=== PATIENT | male | born 1960 | race Caucasian/White ===

== ENCOUNTER 2022-09-21 16:48 | Inpatient (IN) | payer OTHER ==
[2022-09-21 17:39] VITALS: BMI 31.5
[2022-09-21] MEDS ORDERED: VANCOMYCIN/WATER 2 GM/400 ML PREMIX BAG (RESTRICTED TO ID ONLY) IVPB ONE (18:13)
[2022-09-21] MEDS ORDERED: morphine CARPU-JECT 4 MG/1 ML DISP.SYRIN IVPUSH ONE (20:30)
[2022-09-21] MEDS ORDERED: morphine SULFATE 4 MG/ML VIAL ONE (20:31)
[2022-09-21 20:35] LABS: BASO % 0.2 % (0-2.0); EOS % 0.5 % (0-4.5); HEMATOCRIT 23.8 % (35.4-49); HEMOGLOBIN 7.2 GM/dL (11.7-16.9); LYMPH % 4.7 % (8-40); MCH 22.7 pg (25.7-33.7); MCHC 30.2 g/dl (32.0-35.9); MEAN PLT VOLUME 7.7 fl (7.5-11.1); MONO % 5.8 % (3.8-10.2); NEUT % 88.8 % (42.8-82.8); PLATELET COUNT 397 10^3/uL (134-434); RBC 3.18 M/mm3 (4.00-5.60); RDW 19.1 % (11.9-15.9); WHITE BLOOD COUNT 19.5 K/mm3 (4.0-10.0)
[2022-09-21 20:43] LABS: INR 1.71 (0.83-1.09); PROTHROMBIN TIME (PATIENT) 19.7 SEC (9.7-13.0)
[2022-09-21 20:45] LABS: ACTIVATED PTT 34.3 SECONDS (25.2-36.5)
[2022-09-21 20:58] LABS: ALBUMIN 1.3 g/dl (3.4-5.0); BLOOD UREA NITROGEN 67.4 mg/dL (7-18); CALCIUM 7.9 mg/dL (8.5-10.1); MAGNESIUM 1.5 mg/dL (1.8-2.4)
[2022-09-21 21:01] LABS: CREATININE 2.2 mg/dL (0.55-1.3); PHOSPHOROUS 3.2 mg/dL (2.5-4.9)
[2022-09-21 21:03] LABS: BILIRUBIN,TOTAL 0.4 mg/dL (0.2-1)
[2022-09-21] MEDS ORDERED: MEROPENEM 1 GM in DEXTROSE 5%-WATER 100 ML IVPB ONE (21:22)
[2022-09-21] MEDS ORDERED: MAGNESIUM SULF 50% (8.12 MEQ/2 ML-1 GM VIAL) IVPB ONE (21:23)
[2022-09-21] MEDS ORDERED: MAGNESIUM 1GM/D5W - 1 GM/100 ML IVPB IVPB ONE (21:29)
[2022-09-21 21:44] LABS: EPI CELLS 8 /uL (0-25.1); HYALINE CASTS 1 /uL (0-3.1); PH,URINE 5.5 (5.0-8.0); URINE APPEARANCE TURBID; URINE BACTERIA >9,000 /uL (0-1359); URINE BILIRUBIN NEGATIVE (NEGATIVE); URINE COLOR YELLOW; URINE GLUCOSE (UA) NEGATIVE (NEGATIVE); URINE KETONE NEGATIVE (NEGATIVE); URINE LEUK ESTERASE 3+ (NEGATIVE); URINE NITRITE NEGATIVE (NEGATIVE); URINE PROTEIN 2+ (NEGATIVE); URINE UROBILINOGEN 0.2 mg/dL (0.2-1.0); URINE WBC 4894 /uL (0-25.8)
[2022-09-21 22:05] LABS: URINE CRYSTALS URIC ACID /hpf; URINE RBC 311.2 /uL (0-23.9)
[2022-09-22 06:30] LABS: BASO % 0.4 % (0-2.0); EOS % 1.2 % (0-4.5); HEMATOCRIT 24.4 % (35.4-49); HEMOGLOBIN 7.5 GM/dL (11.7-16.9); LYMPH % 8.1 % (8-40); MCH 23.6 pg (25.7-33.7); MCHC 30.8 g/dl (32.0-35.9); MEAN CELL VOLUME 76.6 fl (80-96); MEAN PLT VOLUME 7.9 fl (7.5-11.1); MONO % 5.5 % (3.8-10.2); NEUT % 84.8 % (42.8-82.8); PLATELET COUNT 374 10^3/uL (134-434); RBC 3.19 M/mm3 (4.00-5.60); WHITE BLOOD COUNT 17.8 K/mm3 (4.0-10.0)
[2022-09-22 06:51] LABS: POTASSIUM 4.6 mmol/L (3.5-5.1)
[2022-09-22 06:52] LABS: BLOOD UREA NITROGEN 66.5 mg/dL (7-18); CALCIUM 7.9 mg/dL (8.5-10.1)
[2022-09-22 06:56] LABS: CREATININE 2.1 mg/dL (0.55-1.3)
[2022-09-22] MEDS ORDERED: ALBUTEROL SO4 2.5/IPRATROPIUM 0.5 INH SOL 3 ML VIAL.NEB. NEB PRN (08:10)
[2022-09-22 08:49] LABS: MAGNESIUM 1.8 mg/dL (1.8-2.4)
[2022-09-22] MEDS ORDERED: VANCOMYCIN PREMIX 1.5 GM 1,500 MG/300 ML BAG IVPB SCH (09:00)
[2022-09-22] MEDS ORDERED: METOPROLOL TARTRATE 25 MG TABLET (FP) ONE (10:23)
[2022-09-22] MEDS ORDERED: SERTRALINE HCL 50 MG TABLET (FP) ONE (10:23)
[2022-09-22] MEDS: FLUTICASONE/SALMETEROL (WIXELA) 100 MCG/50 MCG DISKUS IH SCH ×2 (10:40→22:29)
[2022-09-22] MEDS: LACTOBACILLUS ACIDOPHILUS 1 TABLET PO SCH (10:41)
[2022-09-22] MEDS: METOPROLOL TARTRATE 25 MG TABLET (FP) PO SCH ×2 (10:41→21:46)
[2022-09-22] MEDS: SERTRALINE HCL 50 MG TABLET (FP) PO SCH (10:41)
[2022-09-22] MEDS: ACETAMINOPHEN 1000 MG/100 ML BAG IVPB PRN (14:04)
[2022-09-22] MEDS: ATORVASTATIN CA 40 MG TABLET (FP) PO SCH (21:45)
[2022-09-22] MEDS: risperiDONE 0.5 MG TABLET PO SCH (21:46)
[2022-09-23] MEDS ORDERED: VANCOMYCIN PREMIX 1.5 GM 1,500 MG/300 ML BAG IVPB SCH (09:00)
[2022-09-23 10:22] LABS: BASO % 0.2 % (0-2.0); EOS % 0.9 % (0-4.5); HEMATOCRIT 24.7 % (35.4-49); HEMOGLOBIN 7.6 GM/dL (11.7-16.9); LYMPH % 7.7 % (8-40); MCHC 30.6 g/dl (32.0-35.9); MEAN CELL VOLUME 75.3 fl (80-96); MEAN PLT VOLUME 8.1 fl (7.5-11.1); MONO % 4.8 % (3.8-10.2); NEUT % 86.4 % (42.8-82.8); PLATELET COUNT 372 10^3/uL (134-434); RBC 3.28 M/mm3 (4.00-5.60); RDW 19.1 % (11.9-15.9); WHITE BLOOD COUNT 16.8 K/mm3 (4.0-10.0)
[2022-09-23] MEDS: SERTRALINE HCL 50 MG TABLET (FP) PO SCH (10:26)
[2022-09-23] MEDS: LACTOBACILLUS ACIDOPHILUS 1 TABLET PO SCH (10:26)
[2022-09-23] MEDS: METOPROLOL TARTRATE 25 MG TABLET (FP) PO SCH ×2 (10:26→23:11)
[2022-09-23] MEDS: ACETAMINOPHEN 1000 MG/100 ML BAG IVPB PRN (10:41)
[2022-09-23 11:13] LABS: POTASSIUM 4.2 mmol/L (3.5-5.1)
[2022-09-23 11:28] LABS: CALCIUM 7.9 mg/dL (8.5-10.1)
[2022-09-23 11:29] LABS: ALBUMIN 1.2 g/dl (3.4-5.0); BLOOD UREA NITROGEN 62.9 mg/dL (7-18)
[2022-09-23 11:32] LABS: CREATININE 2.1 mg/dL (0.55-1.3)
[2022-09-23 11:33] LABS: BILIRUBIN,TOTAL 0.6 mg/dL (0.2-1); TOT PROT 5.8 g/dl (6.4-8.2)
[2022-09-23] MEDS: FLUTICASONE/SALMETEROL (WIXELA) 100 MCG/50 MCG DISKUS IH SCH (11:51)
[2022-09-23] MEDS: VANCOMYCIN PREMIX 1.5 GM 1,500 MG/300 ML BAG IVPB SCH (11:51)
[2022-09-23] MEDS: COLLAGENASE CLOSTRIDIUM HIST. 30 GRAMS TUBE TP SCH (15:05)
[2022-09-23] MEDS: AMINO ACIDS/PROTEIN HYDROLYS 30 ML LIQUID.PKT PO SCH (18:04)
[2022-09-23] MEDS: traMADol HCL 50 MG TABLET PO PRN (18:51)
[2022-09-23] MEDS: ATORVASTATIN CA 40 MG TABLET (FP) PO SCH (23:11)
[2022-09-24] MEDS: risperiDONE 0.5 MG TABLET PO SCH ×2 (01:37→21:44)
[2022-09-24] MEDS: FLUTICASONE/SALMETEROL (WIXELA) 100 MCG/50 MCG DISKUS IH SCH ×3 (01:39→21:45)
[2022-09-24] MEDS: AMINO ACIDS/PROTEIN HYDROLYS 30 ML LIQUID.PKT PO SCH ×2 (09:01→17:29)
[2022-09-24] MEDS: METOPROLOL TARTRATE 25 MG TABLET (FP) PO SCH ×2 (10:48→21:44)
[2022-09-24] MEDS: SERTRALINE HCL 50 MG TABLET (FP) PO SCH (10:48)
[2022-09-24] MEDS: MULTIVITAMINS THER W-MINERALS COMBO TABLET (FP) PO SCH (10:49)
[2022-09-24] MEDS: LACTOBACILLUS ACIDOPHILUS 1 TABLET PO SCH (10:49)
[2022-09-24] MEDS: COLLAGENASE CLOSTRIDIUM HIST. 30 GRAMS TUBE TP SCH (10:49)
[2022-09-24] MEDS: VANCOMYCIN PREMIX 1.5 GM 1,500 MG/300 ML BAG IVPB SCH (14:25)
[2022-09-24] MEDS: traMADol HCL 50 MG TABLET PO PRN ×2 (15:37→21:48)
[2022-09-24] MEDS: ATORVASTATIN CA 40 MG TABLET (FP) PO SCH (21:44)
[2022-09-25] MEDS: traMADol HCL 50 MG TABLET PO PRN ×2 (06:09→11:50)
[2022-09-25 07:31] LABS: BASO % 0.4 % (0-2.0); EOS % 1.2 % (0-4.5); HEMATOCRIT 24.8 % (35.4-49); HEMOGLOBIN 7.5 GM/dL (11.7-16.9); MCH 22.9 pg (25.7-33.7); MCHC 30.2 g/dl (32.0-35.9); MEAN CELL VOLUME 75.6 fl (80-96); MEAN PLT VOLUME 8.1 fl (7.5-11.1); MONO % 6.7 % (3.8-10.2); NEUT % 83.7 % (42.8-82.8); PLATELET COUNT 353 10^3/uL (134-434); RBC 3.28 M/mm3 (4.00-5.60); WHITE BLOOD COUNT 16.9 K/mm3 (4.0-10.0)
[2022-09-25 07:53] LABS: POTASSIUM 4.1 mmol/L (3.5-5.1)
[2022-09-25 08:08] LABS: BLOOD UREA NITROGEN 62.9 mg/dL (7-18); CALCIUM 8.1 mg/dL (8.5-10.1)
[2022-09-25 08:09] LABS: ALBUMIN 1.2 g/dl (3.4-5.0)
[2022-09-25 08:12] LABS: CREATININE 2.1 mg/dL (0.55-1.3)
[2022-09-25 08:13] LABS: BILIRUBIN,TOTAL 0.7 mg/dL (0.2-1)
[2022-09-25] MEDS: AMINO ACIDS/PROTEIN HYDROLYS 30 ML LIQUID.PKT PO SCH ×2 (08:39→17:12)
[2022-09-25] MEDS: LACTOBACILLUS ACIDOPHILUS 1 TABLET PO SCH (11:50)
[2022-09-25] MEDS: MULTIVITAMINS THER W-MINERALS COMBO TABLET (FP) PO SCH (11:51)
[2022-09-25] MEDS: SERTRALINE HCL 50 MG TABLET (FP) PO SCH (11:51)
[2022-09-25] MEDS: METOPROLOL TARTRATE 25 MG TABLET (FP) PO SCH ×3 (11:51→21:46)
[2022-09-25] MEDS: FLUTICASONE/SALMETEROL (WIXELA) 100 MCG/50 MCG DISKUS IH SCH ×2 (11:56→21:47)
[2022-09-25] MEDS: COLLAGENASE CLOSTRIDIUM HIST. 30 GRAMS TUBE TP SCH (14:00)
[2022-09-25] MEDS: ATORVASTATIN CA 40 MG TABLET (FP) PO SCH (21:44)
[2022-09-25] MEDS: risperiDONE 0.5 MG TABLET PO SCH (21:45)
[2022-09-26] MEDS: AMINO ACIDS/PROTEIN HYDROLYS 30 ML LIQUID.PKT PO SCH ×2 (08:34→17:04)
[2022-09-26 08:36] LABS: BASO % 0.3 % (0-2.0); EOS % 1.4 % (0-4.5); HEMATOCRIT 24.1 % (35.4-49); HEMOGLOBIN 7.3 GM/dL (11.7-16.9); LYMPH % 8.5 % (8-40); MCH 22.8 pg (25.7-33.7); MCHC 30.4 g/dl (32.0-35.9); MEAN CELL VOLUME 75.2 fl (80-96); MEAN PLT VOLUME 7.7 fl (7.5-11.1); MONO % 6.3 % (3.8-10.2); NEUT % 83.5 % (42.8-82.8); PLATELET COUNT 313 10^3/uL (134-434); RBC 3.21 M/mm3 (4.00-5.60); RDW 18.9 % (11.9-15.9); WHITE BLOOD COUNT 15.4 K/mm3 (4.0-10.0)
[2022-09-26 09:04] LABS: POTASSIUM 4.3 mmol/L (3.5-5.1)
[2022-09-26 09:10] LABS: CALCIUM 7.8 mg/dL (8.5-10.1)
[2022-09-26 09:11] LABS: ALBUMIN 1.3 g/dl (3.4-5.0); BLOOD UREA NITROGEN 66.5 mg/dL (7-18)
[2022-09-26 09:14] LABS: CREATININE 2.2 mg/dL (0.55-1.3)
[2022-09-26 09:15] LABS: BILIRUBIN,TOTAL 0.8 mg/dL (0.2-1); TOT PROT 6.1 g/dl (6.4-8.2)
[2022-09-26] MEDS: SERTRALINE HCL 50 MG TABLET (FP) PO SCH (10:20)
[2022-09-26] MEDS: MULTIVITAMINS THER W-MINERALS COMBO TABLET (FP) PO SCH (10:20)
[2022-09-26] MEDS: LACTOBACILLUS ACIDOPHILUS 1 TABLET PO SCH (10:20)
[2022-09-26] MEDS: traMADol HCL 50 MG TABLET PO PRN (10:21)
[2022-09-26] MEDS: COLLAGENASE CLOSTRIDIUM HIST. 30 GRAMS TUBE TP SCH (10:21)
[2022-09-26] MEDS: METOPROLOL TARTRATE 25 MG TABLET (FP) PO SCH ×2 (10:21→22:40)
[2022-09-26] MEDS: FLUTICASONE/SALMETEROL (WIXELA) 100 MCG/50 MCG DISKUS IH SCH ×2 (10:22→22:00)
[2022-09-26] MEDS: ATORVASTATIN CA 40 MG TABLET (FP) PO SCH (22:39)
[2022-09-26] MEDS: risperiDONE 0.5 MG TABLET PO SCH (22:40)
[2022-09-27 09:46] LABS: POTASSIUM 4.3 mmol/L (3.5-5.1)
[2022-09-27 09:51] LABS: BLOOD UREA NITROGEN 70.3 mg/dL (7-18); CALCIUM 7.9 mg/dL (8.5-10.1)
[2022-09-27 09:54] LABS: CREATININE 2.4 mg/dL (0.55-1.3)
[2022-09-27] MEDS: SERTRALINE HCL 50 MG TABLET (FP) PO SCH (10:56)
[2022-09-27] MEDS: FLUTICASONE/SALMETEROL (WIXELA) 100 MCG/50 MCG DISKUS IH SCH ×2 (10:56→22:59)
[2022-09-27] MEDS: MULTIVITAMINS THER W-MINERALS COMBO TABLET (FP) PO SCH (10:56)
[2022-09-27] MEDS: AMINO ACIDS/PROTEIN HYDROLYS 30 ML LIQUID.PKT PO SCH ×3 (10:57→17:42)
[2022-09-27] MEDS: LACTOBACILLUS ACIDOPHILUS 1 TABLET PO SCH (10:57)
[2022-09-27] MEDS: COLLAGENASE CLOSTRIDIUM HIST. 30 GRAMS TUBE TP SCH (10:57)
[2022-09-27] MEDS: METOPROLOL TARTRATE 25 MG TABLET (FP) PO SCH ×2 (10:57→22:58)
[2022-09-27] MEDS: oxyCODONE HCL 5 MG TABLET PO PRN ×2 (15:15→22:58)
[2022-09-27] MEDS: risperiDONE 0.5 MG TABLET PO SCH (22:57)
[2022-09-27] MEDS: MELATONIN 5 MG TABLETS PO PRN (22:58)
[2022-09-27] MEDS: ATORVASTATIN CA 40 MG TABLET (FP) PO SCH (22:58)
[2022-09-28] MEDS: oxyCODONE HCL 5 MG TABLET PO PRN (05:32)
[2022-09-28] MEDS: COLLAGENASE CLOSTRIDIUM HIST. 30 GRAMS TUBE TP SCH (10:00)
[2022-09-28] MEDS: METOPROLOL TARTRATE 25 MG TABLET (FP) PO SCH ×2 (10:47→22:17)
[2022-09-28] MEDS: ASCORBIC ACID 500 MG TABLET (FP) PO SCH (10:47)
[2022-09-28] MEDS: ZINC SULFATE 220 MG CAPSULE (FP) PO SCH (10:47)
[2022-09-28] MEDS: MULTIVITAMINS THER W-MINERALS COMBO TABLET (FP) PO SCH (10:47)
[2022-09-28] MEDS: AMINO ACIDS/PROTEIN HYDROLYS 30 ML LIQUID.PKT PO SCH ×2 (10:47→17:55)
[2022-09-28] MEDS: SERTRALINE HCL 50 MG TABLET (FP) PO SCH (10:48)
[2022-09-28] MEDS: LACTOBACILLUS ACIDOPHILUS 1 TABLET PO SCH (10:48)
[2022-09-28] MEDS: FLUTICASONE/SALMETEROL (WIXELA) 100 MCG/50 MCG DISKUS IH SCH ×2 (10:49→22:17)
[2022-09-28] MEDS: ATORVASTATIN CA 40 MG TABLET (FP) PO SCH (22:17)
[2022-09-28] MEDS: risperiDONE 0.5 MG TABLET PO SCH (22:17)
[2022-09-28] MEDS: MELATONIN 5 MG TABLETS PO PRN (22:17)
[2022-09-29] MEDS: MULTIVITAMINS THER W-MINERALS COMBO TABLET (FP) PO SCH (10:59)
[2022-09-29] MEDS: AMINO ACIDS/PROTEIN HYDROLYS 30 ML LIQUID.PKT PO SCH ×2 (10:59→17:27)
[2022-09-29] MEDS: ASCORBIC ACID 500 MG TABLET (FP) PO SCH (10:59)
[2022-09-29] MEDS: METOPROLOL TARTRATE 25 MG TABLET (FP) PO SCH ×2 (11:00→23:03)
[2022-09-29] MEDS: ZINC SULFATE 220 MG CAPSULE (FP) PO SCH (11:00)
[2022-09-29] MEDS: SERTRALINE HCL 50 MG TABLET (FP) PO SCH (11:00)
[2022-09-29] MEDS: LACTOBACILLUS ACIDOPHILUS 1 TABLET PO SCH (11:00)
[2022-09-29] MEDS: traMADol HCL 50 MG TABLET PO PRN (11:00)
[2022-09-29] MEDS: FLUTICASONE/SALMETEROL (WIXELA) 100 MCG/50 MCG DISKUS IH SCH ×2 (11:06→23:03)
[2022-09-29] MEDS: COLLAGENASE CLOSTRIDIUM HIST. 30 GRAMS TUBE TP SCH (11:40)
[2022-09-29 13:22] LABS: HEMATOCRIT 26.2 % (35.4-49); HEMOGLOBIN 7.7 GM/dL (11.7-16.9); MCHC 29.4 g/dl (32.0-35.9); MEAN CELL VOLUME 78.4 fl (80-96); MEAN PLT VOLUME 8.2 fl (7.5-11.1); PLATELET COUNT 348 10^3/uL (134-434); RBC 3.34 M/mm3 (4.00-5.60); WHITE BLOOD COUNT 12.2 K/mm3 (4.0-10.0)
[2022-09-29] MEDS: risperiDONE 0.5 MG TABLET PO SCH (23:03)
[2022-09-29] MEDS: ATORVASTATIN CA 40 MG TABLET (FP) PO SCH (23:03)
[2022-09-30 08:06] LABS: BASO % 0.5 % (0-2.0); EOS % 1.1 % (0-4.5); HEMATOCRIT 21.1 % (35.4-49); LYMPH % 10.3 % (8-40); MCH 23.3 pg (25.7-33.7); MCHC 30.4 g/dl (32.0-35.9); MEAN CELL VOLUME 76.6 fl (80-96); MEAN PLT VOLUME 8.4 fl (7.5-11.1); MONO % 8.5 % (3.8-10.2); NEUT % 79.6 % (42.8-82.8); PLATELET COUNT 338 10^3/uL (134-434); RBC 2.75 M/mm3 (4.00-5.60); RDW 18.8 % (11.9-15.9)
[2022-09-30 08:08] LABS: HEMOGLOBIN 6.4 GM/dL (11.7-16.9)
[2022-09-30 08:15] LABS: POTASSIUM 4.9 mmol/L (3.5-5.1)
[2022-09-30 08:31] LABS: ALBUMIN 1.2 g/dl (3.4-5.0); BLOOD UREA NITROGEN 81.3 mg/dL (7-18)
[2022-09-30 08:33] LABS: CREATININE 2.5 mg/dL (0.55-1.3)
[2022-09-30 08:35] LABS: BILIRUBIN,TOTAL 0.4 mg/dL (0.2-1)
[2022-09-30] MEDS: AMINO ACIDS/PROTEIN HYDROLYS 30 ML LIQUID.PKT PO SCH ×2 (08:58→17:53)
[2022-09-30] MEDS: FLUTICASONE/SALMETEROL (WIXELA) 100 MCG/50 MCG DISKUS IH SCH ×2 (11:06→23:40)
[2022-09-30] MEDS: COLLAGENASE CLOSTRIDIUM HIST. 30 GRAMS TUBE TP SCH (11:06)
[2022-09-30] MEDS: SERTRALINE HCL 50 MG TABLET (FP) PO SCH (11:07)
[2022-09-30] MEDS: ZINC SULFATE 220 MG CAPSULE (FP) PO SCH (11:07)
[2022-09-30] MEDS: LACTOBACILLUS ACIDOPHILUS 1 TABLET PO SCH (11:08)
[2022-09-30] MEDS: ASCORBIC ACID 500 MG TABLET (FP) PO SCH (11:08)
[2022-09-30] MEDS: METOPROLOL TARTRATE 25 MG TABLET (FP) PO SCH ×2 (11:08→23:39)
[2022-09-30] MEDS: MULTIVITAMINS THER W-MINERALS COMBO TABLET (FP) PO SCH (11:08)
[2022-09-30] MEDS: traMADol HCL 50 MG TABLET PO PRN (17:52)
[2022-09-30] MEDS: ATORVASTATIN CA 40 MG TABLET (FP) PO SCH (23:39)
[2022-09-30] MEDS: risperiDONE 0.5 MG TABLET PO SCH (23:39)
[2022-10-01] MEDS ORDERED: SODIUM CHLORIDE 1,000 ML IV SCH (00:45)
[2022-10-01 03:45] LABS: CHLORIDE 116 mmol/L (98-107); POTASSIUM 4.7 mmol/L (3.5-5.1); SODIUM 145 mmol/L (136-145)
[2022-10-01 03:47] LABS: ANION GAP 8 MMOL/L (8-16); BLOOD UREA NITROGEN 75.5 mg/dL (7-18); CO2 20 mmol/L (21-32); GLUCOSE,RANDOM 130 mg/dL (74-106)
[2022-10-01 03:50] LABS: CREATININE 2.3 mg/dL (0.55-1.3); SGOT/AST 27 U/L (15-37); SGPT/ALT 19 U/L (13-61)
[2022-10-01 03:52] LABS: BILIRUBIN,TOTAL 0.5 mg/dL (0.2-1); TOT PROT 5.2 g/dl (6.4-8.2)
[2022-10-01 04:17] LABS: ALK PHOS 341 U/L (45-117); CALCIUM 6.4 mg/dL (8.5-10.1)
[2022-10-01 05:23] LABS: BASO % 0.8 % (0-2.0); EOS % 1.5 % (0-4.5); HEMATOCRIT 25.2 % (35.4-49); HEMOGLOBIN 7.8 GM/dL (11.7-16.9); LYMPH % 9.3 % (8-40); MCH 23.7 pg (25.7-33.7); MCHC 30.8 g/dl (32.0-35.9); MEAN CELL VOLUME 76.7 fl (80-96); MEAN PLT VOLUME 8.4 fl (7.5-11.1); MONO % 7.6 % (3.8-10.2); NEUT % 80.8 % (42.8-82.8); PLATELET COUNT 364 10^3/uL (134-434); RBC 3.28 M/mm3 (4.00-5.60); RDW 18.9 % (11.9-15.9); WHITE BLOOD COUNT 15.6 K/mm3 (4.0-10.0)
[2022-10-01 05:26] LABS: INR 1.42 (0.83-1.09); PROTHROMBIN TIME (PATIENT) 16.4 SEC (9.7-13.0)
[2022-10-01 05:28] LABS: ACTIVATED PTT 30.9 SECONDS (25.2-36.5)
[2022-10-01] MEDS ORDERED: CALCIUM GLUCONATE 10% - 1,000 MG/10 ML VIAL IVPB ONE (05:48)
[2022-10-01] MEDS: COLLAGENASE CLOSTRIDIUM HIST. 30 GRAMS TUBE TP SCH (07:45)
[2022-10-01 08:35] LABS: ARTERIAL BLD GAS O2 SATURATION 97.7 % (95-98); ARTERIAL BLOOD GAS BASE EXCESS -4.6 mmol/L (-2-2); ARTERIAL BLOOD GAS PO2 112.3 mmHg (80-100); ARTERIAL BLOOD GAS pH 7.298 (7.350-7.450)
[2022-10-01 08:39] LABS: ALLENS TEST POSITIVE
[2022-10-01] MEDS: MULTIVITAMINS THER W-MINERALS COMBO TABLET (FP) PO SCH (09:50)
[2022-10-01] MEDS: AMINO ACIDS/PROTEIN HYDROLYS 30 ML LIQUID.PKT PO SCH ×2 (09:50→17:44)
[2022-10-01] MEDS: LACTOBACILLUS ACIDOPHILUS 1 TABLET PO SCH (09:50)
[2022-10-01] MEDS: FLUTICASONE/SALMETEROL (WIXELA) 100 MCG/50 MCG DISKUS IH SCH ×2 (09:50→22:15)
[2022-10-01] MEDS: ZINC SULFATE 220 MG CAPSULE (FP) PO SCH (09:50)
[2022-10-01] MEDS: METOPROLOL TARTRATE 25 MG TABLET (FP) PO SCH ×2 (09:50→22:37)
[2022-10-01] MEDS: SERTRALINE HCL 50 MG TABLET (FP) PO SCH (09:51)
[2022-10-01] MEDS: ASCORBIC ACID 500 MG TABLET (FP) PO SCH (09:51)
[2022-10-01 12:55] LABS: HEMATOCRIT 27.9 % (35.4-49); HEMOGLOBIN 8.4 GM/dL (11.7-16.9); MCH 23.4 pg (25.7-33.7); MEAN CELL VOLUME 78.2 fl (80-96); MEAN PLT VOLUME 8.5 fl (7.5-11.1); PLATELET COUNT 390 10^3/uL (134-434); RBC 3.56 M/mm3 (4.00-5.60); RDW 19.3 % (11.9-15.9); WHITE BLOOD COUNT 20.2 K/mm3 (4.0-10.0)
[2022-10-01 13:15] LABS: ANISOCYTOSIS 2+; MACROCYTOSIS 1+
[2022-10-01 13:18] LABS: POTASSIUM 5.2 mmol/L (3.5-5.1)
[2022-10-01 13:24] LABS: CREATININE 2.8 mg/dL (0.55-1.3)
[2022-10-01 13:25] LABS: BILIRUBIN,TOTAL 0.8 mg/dL (0.2-1); TOT PROT 6.7 g/dl (6.4-8.2)
[2022-10-01 13:43] LABS: ALBUMIN 1.4 g/dl (3.4-5.0); CALCIUM 8.1 mg/dL (8.5-10.1)
[2022-10-01] MEDS: ATORVASTATIN CA 40 MG TABLET (FP) PO SCH (22:36)
[2022-10-02 07:52] LABS: HEMATOCRIT 25.2 % (35.4-49); HEMOGLOBIN 7.6 GM/dL (11.7-16.9); MCH 23.4 pg (25.7-33.7); MEAN PLT VOLUME 8.6 fl (7.5-11.1); PLATELET COUNT 390 10^3/uL (134-434); RBC 3.23 M/mm3 (4.00-5.60); RDW 19.1 % (11.9-15.9); WHITE BLOOD COUNT 24.9 K/mm3 (4.0-10.0)
[2022-10-02 08:11] LABS: POTASSIUM 5.3 mmol/L (3.5-5.1)
[2022-10-02 08:17] LABS: CALCIUM 7.8 mg/dL (8.5-10.1)
[2022-10-02 08:18] LABS: ALBUMIN 1.3 g/dl (3.4-5.0); BLOOD UREA NITROGEN 92.5 mg/dL (7-18)
[2022-10-02 08:21] LABS: CREATININE 2.8 mg/dL (0.55-1.3)
[2022-10-02 08:22] LABS: BILIRUBIN,TOTAL 0.8 mg/dL (0.2-1); TOT PROT 6.4 g/dl (6.4-8.2)
[2022-10-02 09:59] LABS: ANISOCYTOSIS 1+; MACROCYTOSIS 0; OVALOCYTE 1+
[2022-10-02] MEDS: PIPERACILLIN/TAZOB 2.25 GM 2.25 GM in DEXTROSE 5%-WATER - 50 ML IVPB SCH ×3 (10:20→22:04)
[2022-10-02] MEDS: LACTOBACILLUS ACIDOPHILUS 1 TABLET PO SCH (10:21)
[2022-10-02] MEDS: SERTRALINE HCL 50 MG TABLET (FP) PO SCH (10:21)
[2022-10-02] MEDS: ZINC SULFATE 220 MG CAPSULE (FP) PO SCH (10:21)
[2022-10-02] MEDS: AMINO ACIDS/PROTEIN HYDROLYS 30 ML LIQUID.PKT PO SCH ×2 (10:21→17:52)
[2022-10-02] MEDS: MULTIVITAMINS THER W-MINERALS COMBO TABLET (FP) PO SCH (10:22)
[2022-10-02] MEDS: ASCORBIC ACID 500 MG TABLET (FP) PO SCH (10:22)
[2022-10-02] MEDS: METOPROLOL TARTRATE 25 MG TABLET (FP) PO SCH ×2 (10:22→22:04)
[2022-10-02] MEDS: COLLAGENASE CLOSTRIDIUM HIST. 30 GRAMS TUBE TP SCH (10:24)
[2022-10-02] MEDS: FLUTICASONE/SALMETEROL (WIXELA) 100 MCG/50 MCG DISKUS IH SCH ×2 (10:24→22:05)
[2022-10-02] MEDS: HEPARIN NA (PORCINE) 5,000 UNITS/ML 1ML VIAL SQ SCH ×2 (14:17→22:04)
[2022-10-02] MEDS: ALBUTEROL SO4 0.083% IH SOL 2.5 MG/3 ML VIAL.NEB. NEB SCH ×2 (16:25→20:05)
[2022-10-02] MEDS: ACETYLCYSTEINE 20% 200MG/ML 4 ML VIAL *FOR ORAL / INH USE ONLY NEB SCH ×2 (16:25→20:05)
[2022-10-02] MEDS ORDERED: MELATONIN 5 MG TABLETS PO PRN (19:34)
[2022-10-02] MEDS: ATORVASTATIN CA 40 MG TABLET (FP) PO SCH (22:04)
[2022-10-03] MEDS: PIPERACILLIN/TAZOB 2.25 GM 2.25 GM in DEXTROSE 5%-WATER - 50 ML IVPB SCH ×4 (02:05→20:56)
[2022-10-03] MEDS: ACETYLCYSTEINE 20% 200MG/ML 4 ML VIAL *FOR ORAL / INH USE ONLY NEB SCH ×4 (07:51→20:45)
[2022-10-03] MEDS: ALBUTEROL SO4 0.083% IH SOL 2.5 MG/3 ML VIAL.NEB. NEB SCH ×4 (07:52→20:45)
[2022-10-03 09:31] LABS: HEMATOCRIT 24.9 % (35.4-49); HEMOGLOBIN 7.4 GM/dL (11.7-16.9); MCH 23.6 pg (25.7-33.7); MCHC 29.9 g/dl (32.0-35.9); MEAN CELL VOLUME 78.9 fl (80-96); MEAN PLT VOLUME 8.8 fl (7.5-11.1); PLATELET COUNT 401 10^3/uL (134-434); RBC 3.15 M/mm3 (4.00-5.60); RDW 19.7 % (11.9-15.9)
[2022-10-03 09:44] LABS: WHITE BLOOD COUNT 32.7 K/mm3 (4.0-10.0)
[2022-10-03] MEDS: AMINO ACIDS/PROTEIN HYDROLYS 30 ML LIQUID.PKT PO SCH ×2 (09:58→17:18)
[2022-10-03] MEDS: LACTOBACILLUS ACIDOPHILUS 1 TABLET PO SCH (09:59)
[2022-10-03] MEDS: SERTRALINE HCL 50 MG TABLET (FP) PO SCH (09:59)
[2022-10-03] MEDS: MULTIVITAMINS THER W-MINERALS COMBO TABLET (FP) PO SCH (09:59)
[2022-10-03] MEDS: METOPROLOL TARTRATE 25 MG TABLET (FP) PO SCH ×2 (09:59→21:59)
[2022-10-03] MEDS: ASCORBIC ACID 500 MG TABLET (FP) PO SCH (09:59)
[2022-10-03] MEDS: HEPARIN NA (PORCINE) 5,000 UNITS/ML 1ML VIAL SQ SCH ×2 (10:00→21:58)
[2022-10-03] MEDS: COLLAGENASE CLOSTRIDIUM HIST. 30 GRAMS TUBE TP SCH (10:01)
[2022-10-03] MEDS: FLUTICASONE/SALMETEROL (WIXELA) 100 MCG/50 MCG DISKUS IH SCH ×2 (10:01→21:58)
[2022-10-03 10:02] LABS: ALBUMIN 1.2 g/dl (3.4-5.0); CALCIUM 7.8 mg/dL (8.5-10.1)
[2022-10-03 10:03] LABS: BLOOD UREA NITROGEN 99.9 mg/dL (7-18)
[2022-10-03 10:04] LABS: CREATININE 3.1 mg/dL (0.55-1.3)
[2022-10-03] MEDS: ZINC SULFATE 220 MG CAPSULE (FP) PO SCH (10:04)
[2022-10-03 10:06] LABS: BILIRUBIN,TOTAL 1.2 mg/dL (0.2-1); TOT PROT 6.5 g/dl (6.4-8.2)
[2022-10-03 10:22] LABS: ANISOCYTOSIS 1+
[2022-10-03] MEDS ORDERED: VANCOMYCIN/WATER FOR INJ (PEG) 1,000 MG/200 ML BAG IVPB ONE (10:33)
[2022-10-03] MEDS ORDERED: PIPERACILLIN/TAZOBACTAM 2.25 GM VIAL IVPB ONE (20:52)
[2022-10-03] MEDS: ATORVASTATIN CA 40 MG TABLET (FP) PO SCH (21:58)
[2022-10-04] MEDS: PIPERACILLIN/TAZOB 2.25 GM 2.25 GM in DEXTROSE 5%-WATER - 50 ML IVPB SCH ×4 (02:03→20:54)
[2022-10-04] MEDS: ALBUTEROL SO4 0.083% IH SOL 2.5 MG/3 ML VIAL.NEB. NEB SCH ×4 (07:35→20:47)
[2022-10-04] MEDS: ACETYLCYSTEINE 20% 200MG/ML 4 ML VIAL *FOR ORAL / INH USE ONLY NEB SCH ×4 (07:35→20:47)
[2022-10-04] MEDS: AMINO ACIDS/PROTEIN HYDROLYS 30 ML LIQUID.PKT PO SCH ×2 (10:02→17:25)
[2022-10-04] MEDS: SERTRALINE HCL 50 MG TABLET (FP) PO SCH (10:38)
[2022-10-04] MEDS: ZINC SULFATE 220 MG CAPSULE (FP) PO SCH (10:38)
[2022-10-04] MEDS: METOPROLOL TARTRATE 25 MG TABLET (FP) PO SCH ×2 (10:38→21:14)
[2022-10-04] MEDS: LACTOBACILLUS ACIDOPHILUS 1 TABLET PO SCH (10:38)
[2022-10-04] MEDS: ASCORBIC ACID 500 MG TABLET (FP) PO SCH (10:38)
[2022-10-04] MEDS: HEPARIN NA (PORCINE) 5,000 UNITS/ML 1ML VIAL SQ SCH ×2 (10:39→21:13)
[2022-10-04] MEDS: MULTIVITAMINS THER W-MINERALS COMBO TABLET (FP) PO SCH (11:51)
[2022-10-04] MEDS: FLUTICASONE/SALMETEROL (WIXELA) 100 MCG/50 MCG DISKUS IH SCH ×2 (11:52→23:55)
[2022-10-04] MEDS: COLLAGENASE CLOSTRIDIUM HIST. 30 GRAMS TUBE TP SCH (11:53)
[2022-10-04 15:26] LABS: MCH 23.3 pg (25.7-33.7); MCHC 28.3 g/dl (32.0-35.9); MEAN CELL VOLUME 82.3 fl (80-96); MEAN PLT VOLUME 8.9 fl (7.5-11.1); PLATELET COUNT 318 10^3/uL (134-434); RBC 2.91 M/mm3 (4.00-5.60); RDW 19.7 % (11.9-15.9); WHITE BLOOD COUNT 23.2 K/mm3 (4.0-10.0)
[2022-10-04 15:34] LABS: HEMOGLOBIN 6.8 GM/dL (11.7-16.9)
[2022-10-04 15:46] LABS: POTASSIUM 5.3 mmol/L (3.5-5.1)
[2022-10-04 15:47] LABS: CALCIUM 7.6 mg/dL (8.5-10.1)
[2022-10-04 15:48] LABS: ALBUMIN 1.1 g/dl (3.4-5.0); BLOOD UREA NITROGEN 102.9 mg/dL (7-18)
[2022-10-04 15:51] LABS: CREATININE 3.7 mg/dL (0.55-1.3)
[2022-10-04 16:00] LABS: ANISOCYTOSIS 1+; MACROCYTOSIS 0
[2022-10-04] MEDS ORDERED: ACETAMINOPHEN 325 MG TABLET (FP) PO ONE (19:50)
[2022-10-04] MEDS: ATORVASTATIN CA 40 MG TABLET (FP) PO SCH (21:13)
[2022-10-05] MEDS: PIPERACILLIN/TAZOB 2.25 GM 2.25 GM in DEXTROSE 5%-WATER - 50 ML IVPB SCH ×4 (02:18→21:05)
[2022-10-05] MEDS: ACETYLCYSTEINE 20% 200MG/ML 4 ML VIAL *FOR ORAL / INH USE ONLY NEB SCH ×4 (08:40→20:47)
[2022-10-05] MEDS: ALBUTEROL SO4 0.083% IH SOL 2.5 MG/3 ML VIAL.NEB. NEB SCH ×4 (08:41→20:47)
[2022-10-05] MEDS: AMINO ACIDS/PROTEIN HYDROLYS 30 ML LIQUID.PKT PO SCH ×2 (09:01→16:55)
[2022-10-05 09:43] LABS: CHLORIDE 115 mmol/L (98-107); POTASSIUM 4.9 mmol/L (3.5-5.1); SODIUM 149 mmol/L (136-145)
[2022-10-05 09:44] LABS: HEMOGLOBIN 9.1 GM/dL (11.7-16.9); MCH 23.5 pg (25.7-33.7); MCHC 28.4 g/dl (32.0-35.9); MEAN CELL VOLUME 82.7 fl (80-96); MEAN PLT VOLUME 9.1 fl (7.5-11.1); PLATELET COUNT 291 10^3/uL (134-434); RBC 3.87 M/mm3 (4.00-5.60); WHITE BLOOD COUNT 20.8 K/mm3 (4.0-10.0)
[2022-10-05 09:47] LABS: ANION GAP 13 MMOL/L (8-16); CO2 21 mmol/L (21-32)
[2022-10-05 09:48] LABS: ALBUMIN 0.9 g/dl (3.4-5.0); CALCIUM 7.4 mg/dL (8.5-10.1); GLUCOSE,RANDOM 189 mg/dL (74-106)
[2022-10-05 09:53] LABS: BILIRUBIN,TOTAL 1.1 mg/dL (0.2-1); SGOT/AST 46 U/L (15-37); TOT PROT 4.9 g/dl (6.4-8.2)
[2022-10-05 09:54] LABS: ALK PHOS 198 U/L (45-117)
[2022-10-05 10:01] LABS: SGPT/ALT 20 U/L (13-61)
[2022-10-05] MEDS: LACTOBACILLUS ACIDOPHILUS 1 TABLET PO SCH (10:11)
[2022-10-05] MEDS: SERTRALINE HCL 50 MG TABLET (FP) PO SCH (10:11)
[2022-10-05] MEDS: MULTIVITAMINS THER W-MINERALS COMBO TABLET (FP) PO SCH (10:12)
[2022-10-05] MEDS: METOPROLOL TARTRATE 25 MG TABLET (FP) PO SCH ×2 (10:12→21:20)
[2022-10-05] MEDS: ASCORBIC ACID 500 MG TABLET (FP) PO SCH (10:12)
[2022-10-05] MEDS: ZINC SULFATE 220 MG CAPSULE (FP) PO SCH (10:12)
[2022-10-05] MEDS: HEPARIN NA (PORCINE) 5,000 UNITS/ML 1ML VIAL SQ SCH ×2 (10:13→21:19)
[2022-10-05 10:14] LABS: BLOOD UREA NITROGEN 104.8 mg/dL (7-18)
[2022-10-05] MEDS: COLLAGENASE CLOSTRIDIUM HIST. 30 GRAMS TUBE TP SCH (10:16)
[2022-10-05] MEDS: FLUTICASONE/SALMETEROL (WIXELA) 100 MCG/50 MCG DISKUS IH SCH ×2 (10:18→21:18)
[2022-10-05 10:47] LABS: ANISOCYTOSIS 2+; MACROCYTOSIS 0; TARGET CELLS 1+
[2022-10-05] MEDS: LACTULOSE 20 GM/30 ML UDC (FOR ORAL USE ONLY) PO SCH ×3 (14:44→21:19)
[2022-10-05] MEDS ORDERED: SILVER SULFADIAZINE 1% TOP CREAM 50 GM JAR TP ONE (19:31)
[2022-10-05] MEDS: ATORVASTATIN CA 40 MG TABLET (FP) PO SCH (21:20)
[2022-10-06] MEDS: PIPERACILLIN/TAZOB 2.25 GM 2.25 GM in DEXTROSE 5%-WATER - 50 ML IVPB SCH ×3 (03:17→17:07)
[2022-10-06] MEDS: LACTULOSE 20 GM/30 ML UDC (FOR ORAL USE ONLY) PO SCH ×3 (05:56→21:44)
[2022-10-06] MEDS: ACETYLCYSTEINE 20% 200MG/ML 4 ML VIAL *FOR ORAL / INH USE ONLY NEB SCH ×4 (08:19→20:39)
[2022-10-06] MEDS: ALBUTEROL SO4 0.083% IH SOL 2.5 MG/3 ML VIAL.NEB. NEB SCH ×4 (08:19→20:39)
[2022-10-06 08:44] LABS: HEMATOCRIT 25.7 % (35.4-49); HEMOGLOBIN 7.7 GM/dL (11.7-16.9); MCH 23.7 pg (25.7-33.7); MCHC 29.8 g/dl (32.0-35.9); MEAN CELL VOLUME 79.4 fl (80-96); MEAN PLT VOLUME 8.7 fl (7.5-11.1); PLATELET COUNT 294 10^3/uL (134-434); RBC 3.24 M/mm3 (4.00-5.60); RDW 19.7 % (11.9-15.9)
[2022-10-06] MEDS ORDERED: SODIUM CHLORIDE 500 ML IV STA (08:56)
[2022-10-06 09:07] LABS: CHLORIDE 114 mmol/L (98-107); POTASSIUM 4.9 mmol/L (3.5-5.1); SODIUM 147 mmol/L (136-145)
[2022-10-06 09:15] LABS: ARTERIAL BLD GAS O2 SATURATION 95.2 % (95-98); ARTERIAL BLOOD GAS BASE EXCESS -12.3 mmol/L (-2-2); ARTERIAL BLOOD GAS PO2 110.6 mmHg (80-100)
[2022-10-06 09:20] LABS: CALCIUM 7.7 mg/dL (8.5-10.1)
[2022-10-06 09:21] LABS: ALBUMIN 1.1 g/dl (3.4-5.0); ANION GAP 11 MMOL/L (8-16); CO2 22 mmol/L (21-32); GLUCOSE,RANDOM 149 mg/dL (74-106)
[2022-10-06 09:23] LABS: ALLENS TEST POSITIVE
[2022-10-06 09:24] LABS: VENT MODE ST; VENT RATE 12
[2022-10-06 09:27] LABS: ARTERIAL BLOOD GAS pH 7.022 (7.350-7.450)
[2022-10-06 09:28] LABS: CREATININE 4.5 mg/dL (0.55-1.3); SGOT/AST 42 U/L (15-37); SGPT/ALT 29 U/L (13-61)
[2022-10-06 09:30] LABS: BILIRUBIN,TOTAL 1.1 mg/dL (0.2-1)
[2022-10-06 09:31] LABS: ALK PHOS 221 U/L (45-117)
[2022-10-06 09:34] LABS: BLOOD UREA NITROGEN 116.3 mg/dL (7-18)
[2022-10-06] MEDS ORDERED: VASOPRESSIN 40 UNITS/100 ML BAG IV SCH (09:38)
[2022-10-06 09:44] LABS: ANISOCYTOSIS 0; MACROCYTOSIS 0; OVALOCYTE 1+
[2022-10-06] MEDS ORDERED: SODIUM CHLORIDE 1,000 ML IV SCH (12:00)
[2022-10-06] MEDS ORDERED: SODIUM CHLORIDE 0.9% 1000 ML INFUS.BAG IV SCH (12:00)
[2022-10-06 13:03] LABS: ARTERIAL BLOOD GAS BASE EXCESS -13.8 mmol/L (-2-2); ARTERIAL BLOOD GAS PO2 234.3 mmHg (80-100)
[2022-10-06 13:06] LABS: ALLENS TEST POSITIVE
[2022-10-06 13:07] LABS: VENT MODE V; VENT RATE 20
[2022-10-06 13:08] LABS: ARTERIAL BLOOD GAS pH 6.994 (7.350-7.450)
[2022-10-06] MEDS ORDERED: CALCIUM GLUC IN NACL, ISO-OSM 1 GM/50 ML BAG IVPB ONE (13:31)
[2022-10-06] MEDS ORDERED: SODIUM BICARBONATE 8.4% 50 MEQ/50 ML DISP.SYRIN IVPUSH ONE (13:45)
[2022-10-06] MEDS: NOREPINEPHRINE BITARTRATE/D5W 8 MG/250 ML BAG IVPB SCH ×2 (13:58→20:58)
[2022-10-06] MEDS: AMINO ACIDS/PROTEIN HYDROLYS 30 ML LIQUID.PKT PO SCH (16:09)
[2022-10-06 16:42] LABS: ARTERIAL BLD GAS O2 SATURATION 96.1 % (95-98); ARTERIAL BLOOD GAS BASE EXCESS -14.2 mmol/L (-2-2); ARTERIAL BLOOD GAS PO2 104.2 mmHg (80-100)
[2022-10-06 16:44] LABS: VENT MODE A/C; VENT RATE 24
[2022-10-06 16:45] LABS: ARTERIAL BLOOD GAS pH 7.146 (7.350-7.450)
[2022-10-06] MEDS: FLUTICASONE/SALMETEROL (WIXELA) 100 MCG/50 MCG DISKUS IH SCH ×2 (17:07→21:45)
[2022-10-06] MEDS: LACTOBACILLUS ACIDOPHILUS 1 TABLET PO SCH (17:07)
[2022-10-06] MEDS: COLLAGENASE CLOSTRIDIUM HIST. 30 GRAMS TUBE TP SCH (17:07)
[2022-10-06] MEDS: MULTIVITAMINS THER W-MINERALS COMBO TABLET (FP) PO SCH (17:08)
[2022-10-06] MEDS ORDERED: CEFEPIME 1 GM in DEXTROSE 5%-WATER - 50 ML IVPB ONE (17:09)
[2022-10-06] MEDS: METOPROLOL TARTRATE 25 MG TABLET (FP) PO SCH (17:09)
[2022-10-06] MEDS: ZINC SULFATE 220 MG CAPSULE (FP) PO SCH (17:09)
[2022-10-06] MEDS: SERTRALINE HCL 50 MG TABLET (FP) PO SCH (17:09)
[2022-10-06] MEDS: ASCORBIC ACID 500 MG TABLET (FP) PO SCH (17:09)
[2022-10-06] MEDS ORDERED: PIPERACILLIN/TAZOB 2.25 GM 2.25 GM in DEXTROSE 5%-WATER - 50 ML IVPB SCH (18:00)
[2022-10-06 18:09] LABS: LACTIC ACID 4.6 mmol/L (0.4-2.0)
[2022-10-06] MEDS: PROPOFOL 1,000,000 MCG/100 ML VIAL IVPB SCH ×2 (18:18→23:49)
[2022-10-06] MEDS: FLUDROCORTISONE ACETATE 0.1 MG TABLET (FP) NGT SCH (18:18)
[2022-10-06] MEDS: HYDROCORTISONE SOD SUCCINATE 100 MG/2 ML VIAL IVPB SCH (18:18)
[2022-10-06] MEDS: VASOPRESSIN 40 UNITS/100 ML BAG IV SCH ×2 (19:00)
[2022-10-06 20:42] LABS: LACTIC ACID 5.4 mmol/L (0.4-2.0)
[2022-10-06] MEDS: SODIUM BICARBONATE 8.4% - 150 MEQ in DEXTROSE 5%-WATER - 950 ML IV SCH (21:05)
[2022-10-06] MEDS: ATORVASTATIN CA 40 MG TABLET (FP) NGT SCH (21:44)
[2022-10-06] MEDS: HEPARIN NA (PORCINE) 5,000 UNITS/ML 1ML VIAL SQ SCH (21:44)
[2022-10-06] MEDS ORDERED: DEXTROSE 50%-WATER 25 GM/50 ML DISP.SYRIN IVPUSH ONE (22:03)
[2022-10-07] MEDS: HYDROCORTISONE SOD SUCCINATE 100 MG/2 ML VIAL IVPB SCH ×5 (00:04→23:37)
[2022-10-07 00:47] LABS: CHLORIDE 114 mmol/L (98-107); POTASSIUM 4.7 mmol/L (3.5-5.1); SODIUM 150 mmol/L (136-145)
[2022-10-07 00:49] LABS: CALCIUM 7.4 mg/dL (8.5-10.1)
[2022-10-07 00:51] LABS: ANION GAP 16 MMOL/L (8-16); CO2 19 mmol/L (21-32); GLUCOSE,RANDOM 131 mg/dL (74-106); MAGNESIUM 1.9 mg/dL (1.8-2.4)
[2022-10-07 00:52] LABS: CREATININE 4.6 mg/dL (0.55-1.3); PHOSPHOROUS 6.6 mg/dL (2.5-4.9)
[2022-10-07 00:53] LABS: SGOT/AST 64 U/L (15-37); SGPT/ALT 31 U/L (13-61)
[2022-10-07 00:54] LABS: BILIRUBIN,TOTAL 1.3 mg/dL (0.2-1); TOT PROT 5.8 g/dl (6.4-8.2)
[2022-10-07 01:02] LABS: ALK PHOS 176 U/L (45-117); BLOOD UREA NITROGEN 111.5 mg/dL (7-18)
[2022-10-07] MEDS: NOREPINEPHRINE BITARTRATE/D5W 8 MG/250 ML BAG IVPB SCH ×3 (02:47→21:40)
[2022-10-07 05:39] LABS: ARTERIAL BLD GAS O2 SATURATION 79.6 % (95-98); ARTERIAL BLOOD GAS BASE EXCESS -14.9 mmol/L (-2-2); ARTERIAL BLOOD GAS PO2 66.8 mmHg (80-100)
[2022-10-07 05:42] LABS: VENT MODE V-A/C; VENT RATE 22
[2022-10-07 05:43] LABS: ARTERIAL BLOOD GAS pH 6.974 (7.350-7.450)
[2022-10-07] MEDS: LACTULOSE 20 GM/30 ML UDC (FOR ORAL USE ONLY) PO SCH ×3 (05:53→21:26)
[2022-10-07] MEDS: HEPARIN NA (PORCINE) 5,000 UNITS/ML 1ML VIAL SQ SCH ×3 (05:53→21:26)
[2022-10-07] MEDS: AMINO ACIDS/PROTEIN HYDROLYS 30 ML LIQUID.PKT PO SCH (07:17)
[2022-10-07 07:27] LABS: HEMATOCRIT 25.7 % (35.4-49); HEMOGLOBIN 7.6 GM/dL (11.7-16.9); MCH 24.1 pg (25.7-33.7); MCHC 29.6 g/dl (32.0-35.9); MEAN CELL VOLUME 81.5 fl (80-96); MEAN PLT VOLUME 9.3 fl (7.5-11.1); PLATELET COUNT 215 10^3/uL (134-434); RBC 3.16 M/mm3 (4.00-5.60); RDW 19.8 % (11.9-15.9)
[2022-10-07 07:32] LABS: INR 1.72 (0.83-1.09); PROTHROMBIN TIME (PATIENT) 19.9 SEC (9.7-13.0)
[2022-10-07 07:34] LABS: WHITE BLOOD COUNT 47.2 K/mm3 (4.0-10.0)
[2022-10-07] MEDS ORDERED: SODIUM BICARBONATE 8.4% 50 MEQ/50 ML DISP.SYRIN IVPUSH ONE ×2 (07:37→09:45)
[2022-10-07 07:53] LABS: CHLORIDE 113 mmol/L (98-107); POTASSIUM 4.9 mmol/L (3.5-5.1); SODIUM 147 mmol/L (136-145)
[2022-10-07 08:01] LABS: PHOSPHOROUS 6.8 mg/dL (2.5-4.9); SGPT/ALT 33 U/L (13-61)
[2022-10-07 08:02] LABS: BILIRUBIN,TOTAL 1.3 mg/dL (0.2-1); GLUCOSE,RANDOM 138 mg/dL (74-106)
[2022-10-07 08:04] LABS: ALK PHOS 165 U/L (45-117); TOT PROT 5.8 g/dl (6.4-8.2)
[2022-10-07 08:05] LABS: ANION GAP 15 MMOL/L (8-16); CALCIUM 7.4 mg/dL (8.5-10.1); CO2 19 mmol/L (21-32); CREATININE 4.5 mg/dL (0.55-1.3); MAGNESIUM 1.9 mg/dL (1.8-2.4); SGOT/AST 67 U/L (15-37)
[2022-10-07 08:08] LABS: BLOOD UREA NITROGEN 113.2 mg/dL (7-18); LACTIC ACID 7.1 mmol/L (0.4-2.0)
[2022-10-07] MEDS: ALBUTEROL SO4 0.083% IH SOL 2.5 MG/3 ML VIAL.NEB. NEB SCH ×4 (08:15→20:14)
[2022-10-07] MEDS: ACETYLCYSTEINE 20% 200MG/ML 4 ML VIAL *FOR ORAL / INH USE ONLY NEB SCH ×4 (08:15→20:14)
[2022-10-07 09:01] LABS: ANISOCYTOSIS 1+; MACROCYTOSIS 1+; TEAR DROP CELLS 1+
[2022-10-07] MEDS: SODIUM BICARBONATE 8.4% - 150 MEQ in DEXTROSE 5%-WATER - 950 ML IV SCH ×2 (09:06→20:00)
[2022-10-07] MEDS: FLUTICASONE/SALMETEROL (WIXELA) 100 MCG/50 MCG DISKUS IH SCH ×2 (09:07→21:27)
[2022-10-07] MEDS: FLUDROCORTISONE ACETATE 0.1 MG TABLET (FP) NGT SCH (09:08)
[2022-10-07] MEDS: MULTIVITAMINS THER W-MINERALS COMBO TABLET (FP) PO SCH (09:08)
[2022-10-07] MEDS: COLLAGENASE CLOSTRIDIUM HIST. 30 GRAMS TUBE TP SCH (09:08)
[2022-10-07] MEDS: PANTOPRAZOLE SODIUM 40 MG VIAL IVPUSH SCH (09:08)
[2022-10-07] MEDS: LACTOBACILLUS ACIDOPHILUS 1 TABLET PO SCH (09:08)
[2022-10-07 10:18] LABS: EPI CELLS 8 /uL (0-25.1); HYALINE CASTS 2 /uL (0-3.1); PH,URINE 5.5 (5.0-8.0); URINE APPEARANCE TURBID; URINE BACTERIA 153 /uL (0-1359); URINE BILIRUBIN NEGATIVE (NEGATIVE); URINE COLOR YELLOW; URINE GLUCOSE (UA) NEGATIVE (NEGATIVE); URINE KETONE NEGATIVE (NEGATIVE); URINE LEUK ESTERASE 3+ (NEGATIVE); URINE NITRITE NEGATIVE (NEGATIVE); URINE PROTEIN NEGATIVE (NEGATIVE); URINE UROBILINOGEN 0.2 mg/dL (0.2-1.0); URINE WBC 5271 /uL (0-25.8)
[2022-10-07 10:21] LABS: ARTERIAL BLD GAS O2 SATURATION 97.9 % (95-98); ARTERIAL BLOOD GAS BASE EXCESS -11.1 mmol/L (-2-2)
[2022-10-07 10:24] LABS: ALLENS TEST POSITIVE; VENT MODE A/C
[2022-10-07 10:25] LABS: VENT RATE 30
[2022-10-07 10:26] LABS: ARTERIAL BLOOD GAS pH 7.175 (7.350-7.450)
[2022-10-07 11:10] LABS: URINE RBC 136.5 /uL (0-23.9); YEAST NEGATIVE (NEGATIVE)
[2022-10-07] MEDS: MEROPENEM 1 GM in DEXTROSE 5%-WATER 100 ML IVPB SCH (16:12)
[2022-10-07] MEDS ORDERED: ACETAMINOPHEN 1000 MG/100 ML BAG IVPB PRN (17:20)
[2022-10-07] MEDS: VASOPRESSIN 40 UNITS/100 ML BAG IV SCH (17:21)
[2022-10-07] MEDS: ATORVASTATIN CA 40 MG TABLET (FP) NGT SCH (21:27)
[2022-10-07] MEDS: PROPOFOL 1,000,000 MCG/100 ML VIAL IVPB SCH (22:06)
[2022-10-08] MEDS: PROPOFOL 1,000,000 MCG/100 ML VIAL IVPB SCH ×2 (03:06→11:07)
[2022-10-08] MEDS: VASOPRESSIN 40 UNITS/100 ML BAG IV SCH ×2 (03:11→09:35)
[2022-10-08] MEDS: NOREPINEPHRINE BITARTRATE/D5W 8 MG/250 ML BAG IVPB SCH ×4 (03:11→23:55)
[2022-10-08] MEDS: HYDROCORTISONE SOD SUCCINATE 100 MG/2 ML VIAL IVPB SCH ×4 (05:19→23:46)
[2022-10-08] MEDS: HEPARIN NA (PORCINE) 5,000 UNITS/ML 1ML VIAL SQ SCH (05:19)
[2022-10-08] MEDS: LACTULOSE 20 GM/30 ML UDC (FOR ORAL USE ONLY) PO SCH ×3 (05:19→21:21)
[2022-10-08 07:09] LABS: HEMATOCRIT 22.2 % (35.4-49); MCH 25.7 pg (25.7-33.7); MCHC 30.8 g/dl (32.0-35.9); MEAN CELL VOLUME 83.4 fl (80-96); PLATELET COUNT 103 10^3/uL (134-434); RBC 2.67 M/mm3 (4.00-5.60); RDW 19.9 % (11.9-15.9)
[2022-10-08] MEDS: ACETYLCYSTEINE 20% 200MG/ML 4 ML VIAL *FOR ORAL / INH USE ONLY NEB SCH ×4 (07:15→20:05)
[2022-10-08] MEDS: ALBUTEROL SO4 0.083% IH SOL 2.5 MG/3 ML VIAL.NEB. NEB SCH ×4 (07:15→20:05)
[2022-10-08 07:22] LABS: HEMOGLOBIN 6.9 GM/dL (11.7-16.9); WHITE BLOOD COUNT 43.1 K/mm3 (4.0-10.0)
[2022-10-08 07:31] LABS: CHLORIDE 104 mmol/L (98-107); POTASSIUM 5.3 mmol/L (3.5-5.1); SODIUM 142 mmol/L (136-145)
[2022-10-08 07:35] LABS: GLUCOSE,RANDOM 247 mg/dL (74-106)
[2022-10-08 07:36] LABS: ALBUMIN 0.8 g/dl (3.4-5.0); ANION GAP 21 MMOL/L (8-16); CO2 17 mmol/L (21-32); MAGNESIUM 1.9 mg/dL (1.8-2.4)
[2022-10-08 07:38] LABS: SGPT/ALT 38 U/L (13-61)
[2022-10-08 07:39] LABS: CREATININE 4.5 mg/dL (0.55-1.3); PHOSPHOROUS 7.2 mg/dL (2.5-4.9); SGOT/AST 75 U/L (15-37)
[2022-10-08 07:40] LABS: BILIRUBIN,TOTAL 1.5 mg/dL (0.2-1)
[2022-10-08 07:42] LABS: ALK PHOS 176 U/L (45-117)
[2022-10-08 07:49] LABS: BLOOD UREA NITROGEN 106.4 mg/dL (7-18); CALCIUM 6.6 mg/dL (8.5-10.1); TOT PROT 5.2 g/dl (6.4-8.2)
[2022-10-08 07:50] LABS: LACTIC ACID 10.4 mmol/L (0.4-2.0)
[2022-10-08] MEDS ORDERED: SODIUM BICARBONATE 8.4% 50 MEQ/50 ML DISP.SYRIN IVPUSH ONE (08:45)
[2022-10-08 08:50] LABS: ANISOCYTOSIS 2+; MACROCYTOSIS 0
[2022-10-08] MEDS: PANTOPRAZOLE SODIUM 40 MG VIAL IVPUSH SCH (09:00)
[2022-10-08] MEDS ORDERED: CALCIUM GLUC IN NACL, ISO-OSM 1 GM/50 ML BAG IVPB ONE (09:00)
[2022-10-08] MEDS: MEROPENEM 1 GM in DEXTROSE 5%-WATER 100 ML IVPB SCH (09:00)
[2022-10-08] MEDS: SODIUM BICARBONATE 8.4% - 150 MEQ in DEXTROSE 5%-WATER - 950 ML IV SCH ×3 (09:00→19:20)
[2022-10-08] MEDS: FLUDROCORTISONE ACETATE 0.1 MG TABLET (FP) NGT SCH (09:01)
[2022-10-08] MEDS: FLUTICASONE/SALMETEROL (WIXELA) 100 MCG/50 MCG DISKUS IH SCH ×2 (09:01→21:20)
[2022-10-08] MEDS: MULTIVITAMINS THER W-MINERALS COMBO TABLET (FP) PO SCH (09:01)
[2022-10-08] MEDS: LACTOBACILLUS ACIDOPHILUS 1 TABLET PO SCH (09:01)
[2022-10-08] MEDS: COLLAGENASE CLOSTRIDIUM HIST. 30 GRAMS TUBE TP SCH (09:02)
[2022-10-08 14:21] VITALS: RESP 30
[2022-10-08] MEDS: MORPHINE SULFATE/0.9% NACL/PF 100 MG/100 ML BAG IVPB SCH (15:22)
[2022-10-08] MEDS: PHENYLEPHRINE NS PREMIX 50,000 MCG/500 ML BAG IVPB SCH (17:24)
[2022-10-08] MEDS: ATORVASTATIN CA 40 MG TABLET (FP) NGT SCH (21:22)
[2022-10-09] MEDS: SODIUM BICARBONATE 8.4% - 150 MEQ in DEXTROSE 5%-WATER - 950 ML IV SCH ×3 (03:15→15:05)
[2022-10-09] MEDS: NOREPINEPHRINE BITARTRATE/D5W 8 MG/250 ML BAG IVPB SCH ×4 (04:54→21:07)
[2022-10-09] MEDS: LACTULOSE 20 GM/30 ML UDC (FOR ORAL USE ONLY) PO SCH ×4 (06:19→21:33)
[2022-10-09] MEDS: HYDROCORTISONE SOD SUCCINATE 100 MG/2 ML VIAL IVPB SCH ×3 (06:23→17:50)
[2022-10-09 06:57] LABS: HEMATOCRIT 24.5 % (35.4-49); HEMOGLOBIN 7.6 GM/dL (11.7-16.9); MCH 26.8 pg (25.7-33.7); MCHC 31.2 g/dl (32.0-35.9); MEAN PLT VOLUME 9.2 fl (7.5-11.1); RBC 2.84 M/mm3 (4.00-5.60); RDW 19.2 % (11.9-15.9)
[2022-10-09 07:10] LABS: WHITE BLOOD COUNT 48.3 K/mm3 (4.0-10.0)
[2022-10-09 07:17] LABS: CHLORIDE 100 mmol/L (98-107); POTASSIUM 5.3 mmol/L (3.5-5.1); SODIUM 139 mmol/L (136-145)
[2022-10-09] MEDS: ACETYLCYSTEINE 20% 200MG/ML 4 ML VIAL *FOR ORAL / INH USE ONLY NEB SCH ×4 (07:20→22:00)
[2022-10-09] MEDS: ALBUTEROL SO4 0.083% IH SOL 2.5 MG/3 ML VIAL.NEB. NEB SCH ×4 (07:21→22:00)
[2022-10-09 07:23] LABS: ALBUMIN 0.7 g/dl (3.4-5.0); ANION GAP 23 MMOL/L (8-16); CO2 16 mmol/L (21-32); GLUCOSE,RANDOM 272 mg/dL (74-106)
[2022-10-09 07:26] LABS: SGOT/AST 146 U/L (15-37)
[2022-10-09 07:27] LABS: CREATININE 4.2 mg/dL (0.55-1.3); PHOSPHOROUS 7.8 mg/dL (2.5-4.9)
[2022-10-09 07:28] LABS: BILIRUBIN,TOTAL 1.9 mg/dL (0.2-1)
[2022-10-09 07:36] LABS: ALK PHOS 208 U/L (45-117); CALCIUM 6.2 mg/dL (8.5-10.1); SGPT/ALT 47 U/L (13-61); TOT PROT 4.6 g/dl (6.4-8.2)
[2022-10-09] MEDS: FLUTICASONE/SALMETEROL (WIXELA) 100 MCG/50 MCG DISKUS IH SCH ×2 (09:31→21:02)
[2022-10-09] MEDS: MEROPENEM 1 GM in DEXTROSE 5%-WATER 100 ML IVPB SCH (09:32)
[2022-10-09] MEDS: PANTOPRAZOLE SODIUM 40 MG VIAL IVPUSH SCH (09:32)
[2022-10-09] MEDS: MULTIVITAMINS THER W-MINERALS COMBO TABLET (FP) PO SCH (09:33)
[2022-10-09] MEDS: PROPOFOL 1,000,000 MCG/100 ML VIAL IVPB SCH ×3 (09:33→19:28)
[2022-10-09] MEDS: LACTOBACILLUS ACIDOPHILUS 1 TABLET PO SCH (09:33)
[2022-10-09] MEDS: FLUDROCORTISONE ACETATE 0.1 MG TABLET (FP) NGT SCH (09:33)
[2022-10-09] MEDS: COLLAGENASE CLOSTRIDIUM HIST. 30 GRAMS TUBE TP SCH (09:33)
[2022-10-09] MEDS: VASOPRESSIN 40 UNITS/100 ML BAG IV SCH ×3 (09:34→19:28)
[2022-10-09 10:41] LABS: ANISOCYTOSIS 1+; MACROCYTOSIS 0; OVALOCYTE 1+; TEAR DROP CELLS 2+
[2022-10-09 10:51] LABS: PLATELET COUNT 36 10^3/uL (134-434)
[2022-10-09] MEDS ORDERED: VANCOMYCIN/WATER FOR INJ (PEG) 1,000 MG/200 ML BAG IVPB ONE (12:30)
[2022-10-09] MEDS: PHENYLEPHRINE NS PREMIX 50,000 MCG/500 ML BAG IVPB SCH (17:49)
[2022-10-09] MEDS ORDERED: DEXTROSE 50%-WATER 25 GM/50 ML DISP.SYRIN ONE (18:11)
[2022-10-09] MEDS ORDERED: DEXTROSE 50%-WATER - 25 GM/50 ML VIAL IVPUSH ONE (18:51)
[2022-10-09] MEDS: MORPHINE SULFATE/0.9% NACL/PF 100 MG/100 ML BAG IVPB SCH (19:28)
[2022-10-09] MEDS ORDERED: DEXTROSE 50%-WATER - 25 GM/50 ML VIAL IVPUSH PRN (20:37)
[2022-10-09] MEDS: ATORVASTATIN CA 40 MG TABLET (FP) NGT SCH ×2 (21:14→21:34)
[2022-10-09 22:38] VITALS: BP 89/50; PULSE 38; TEMP 96
== END 2022-10-09 23:11 | disposition expired | DRG 720 ==
LOC: JER 16:48 → JERBED 21:14 → J8W 09-22 13:51 → J7W 09-23 18:29 → J4S 10-01 11:46 → JICU 10-06 09:33
PROVIDERS: ADMIT Internal Medicine; ATTEND Internal Medicine
PROC: 30233N1 Transfusion of Nonautologous Red Blood Cells into Peripheral Vein, Percutaneous Approach (ICD-10-PCS; 2022-09-30)
PROC: 05HM33Z Insertion of Infusion Device into Right Internal Jugular Vein, Percutaneous Approach (ICD-10-PCS; principal; 2022-10-06)
PROC: B543ZZA Ultrasonography of Right Jugular Veins, Guidance (ICD-10-PCS; 2022-10-06)
PROC: 0BH17EZ Insertion of Endotracheal Airway into Trachea, Via Natural or Artificial Opening (ICD-10-PCS; 2022-10-06)
PROC: 5A1945Z Respiratory Ventilation, 24-96 Consecutive Hours (ICD-10-PCS; 2022-10-06)
DX: A41.02 Sepsis due to Methicillin resistant Staphylococcus aureus (principal); R65.21 Severe sepsis with septic shock; R53.2 Functional quadriplegia; E11.51 Type 2 diabetes mellitus with diabetic peripheral angiopathy without gangrene; K76.7 Hepatorenal syndrome; T17.890A Other foreign object in other parts of respiratory tract causing asphyxiation, initial encounter; I46.9 Cardiac arrest, cause unspecified; L89.154 Pressure ulcer of sacral region, stage 4; J96.02 Acute respiratory failure with hypercapnia; K76.82 Hepatic encephalopathy; L89.323 Pressure ulcer of left buttock, stage 3; J18.9 Pneumonia, unspecified organism; J96.01 Acute respiratory failure with hypoxia; E83.42 Hypomagnesemia; E87.29 Other acidosis; I48.0 Paroxysmal atrial fibrillation; D50.9 Iron deficiency anemia, unspecified; I12.9 Hypertensive chronic kidney disease with stage 1 through stage 4 chronic kidney disease, or unspecified chronic kidney disease; E11.22 Type 2 diabetes mellitus with diabetic chronic kidney disease; N18.9 Chronic kidney disease, unspecified; E78.5 Hyperlipidemia, unspecified; D63.1 Anemia in chronic kidney disease; F32.A Depression, unspecified; E66.9 Obesity, unspecified; Z68.31 Body mass index [BMI] 31.0-31.9, adult; K21.9 Gastro-esophageal reflux disease without esophagitis; N39.0 Urinary tract infection, site not specified; K70.30 Alcoholic cirrhosis of liver without ascites; Z89.511 Acquired absence of right leg below knee
CPT/HCPCS: 31500; 36415; 36430; 36600; 70450-TC; 71045-TC-FY; 76775-TC; 80048; 80053; 81003; 82140; 82550; 82803; 82962; 83605; 83735; 84100; 84484; 85025; 85027; 85610; 85730; 86850; 86900; 86901; 86922; 87040; 87070; 87077; 87086; 87186; 87205; 87324; 87449; 87635; 93005; 93010; 93306-TC; 94002; 94640; 94660; 97161-GP; 99285-25; E0186; G0480; J1644; J3490; P9058